=== PATIENT | female | born 1995 | race Two or more races ===

== ENCOUNTER 2018-04-15 21:28 | Emergency (ER) | payer SELFPAY ==
[~2018-04-15] VITALS: Ht 165.1 cm; Wt 70.3 kg
--- NOTE | 2018-04-15 22:03 | PHYS DOC ---
Past Medical History Past Medical History: No Pertinent History Past Surgical History: No Surgical History Alcohol Use: None Drug Use: None Adult General Chief Complaint Chief Complaint: VAGINAL BLEEDING HPI HPI 23-year-old female presents to ER with complaints of 4 day history of intermittent vaginal bleeding. Patient states today the bleeding has increased along with lower abdominal cramping. Patient states she is 2 para 1 with LMP 01/30/18. Patient reports last week she did have flulike illness denies any N/V/D this week or fever/chills, cough, or urinary sxs. Patient denies dizziness or lightheadedness. Patient reports she was seen by her COMMUNICATION INSTRUCTOR last week and had ultrasound on and was told everything looked normal limits. Patient denies any recent falls or injury. Patient denies any recent sexual intercourse. Translation phone used as pt speaks primary Bulgarian with minimal Slovenian. Review of Systems Review of Systems Constitutional: Denies fever or chills [] Respiratory: Denies cough or shortness of breath [] Cardiovascular: No additional information not addressed in HPI [] GI: Denies vomiting, bloody stools or diarrhea. Reports intermittent nausea and mid low abd pain/cramping : Denies dysuria or hematuria. Reports vaginal bleeding- states she has used 3 pads today- denies saturating pads Musculoskeletal: Denies back pain or joint pain [] Integument: Denies rash, swelling or skin lesions [] Neurologic: Denies headache, focal weakness or sensory changes [] Endocrine: Denies polyuria or polydipsia [] All other systems were reviewed and found to be within normal limits, except as documented in this note. Allergies Allergies Allergies Coded Allergies Type Severity Reaction Last Updated Verified No Known Drug Allergies 04/15/18 No Physical Exam Physical Exam Constitutional: Well developed, well nourished, no acute distress, non-toxic appearance. [] HENT: Normocephalic, atraumatic, oropharynx moist, nose normal. [] Eyes: Pupils equal, conjunctiva normal, no discharge. [] Neck: Normal range of motion, no tenderness, supple, no stridor. [] Cardiovascular: Heart rate regular rhythm, no murmur [] Lungs & Thorax: Bilateral breath sounds clear to auscultation. Resp. equal/ nonlabored Abdomen: Bowel sounds normal, soft- no distention or rigidity, tender suprapubic area, no masses, no pulsatile masses. [] Skin: Warm, dry, no erythema, no rash. [] Back: No tenderness, no CVA tenderness. [] Extremities: No tenderness, no cyanosis, no clubbing, ROM intact, no edema. [] Neurologic: Alert and oriented X 3, normal motor function, normal sensory function, no focal deficits noted. [] Psychologic: Affect normal, judgement normal, mood normal. [] Current Patient Data Vital Signs Vital Signs Date Time Temp Pulse Resp B/P (MAP) Pulse Ox O2 Delivery O2 Flow Rate FiO2 04/16/18 00:56 78 16 107/56 (73) 99 Room Air 04/15/18 21:40 98.9 98.9 Lab Values Laboratory Tests Test 04/15/18 21:35 04/15/18 22:02 04/15/18 22:20 Urine Collection Type Unknown Urine Color Yellow Urine Clarity Turbid Urine pH 8.0 Urine Specific [place] 1.020 Urine Protein Negative mg/dL (NEG-TRACE) Urine Glucose (UA) Negative mg/dL (NEG) Urine Ketones (Stick) Negative mg/dL (NEG) Urine Blood Large (NEG) Urine Nitrite Negative (NEG) Urine Bilirubin Negative (NEG) Urine Urobilinogen Dipstick 0.2 mg/dL (0.2 mg/dL) Urine Leukocyte Esterase Small (NEG) Urine RBC Tntc /HPF (0-2) Urine WBC 1-4 /HPF (0-4) Urine Squamous Epithelial Cells Mod /LPF Urine Amorphous Sediment Present /HPF Urine Bacteria 0 /HPF (0-FEW) Urine Mucus Slight /LPF POC Urine HCG, Qualitative Hcg positive (Negative) White Blood Count 11.9 x10^3/uL (4.0-11.0) H Red Blood Count 4.21 x10^6/uL (3.50-5.40) Hemoglobin 13.7 g/dL (12.0-15.5) Hematocrit 38.1 % (36.0-47.0) Mean Corpuscular Volume 91 fL (79-100) Mean Corpuscular Hemoglobin 33 pg (25-35) Mean Corpuscular Hemoglobin Concent 36 g/dL (31-37) Red Cell Distribution Width 12.4 % (11.5-14.5) Platelet Count 240 x10^3/uL (140-400) Neutrophils (%) (Auto) 60 % (31-73) Lymphocytes (%) (Auto) 32 % (24-48) Monocytes (%) (Auto) 7 % (0-9) Eosinophils (%) (Auto) 1 % (0-3) Basophils (%) (Auto) 1 % (0-3) Neutrophils # (Auto) 7.1 x10^3uL (1.8-7.7) Lymphocytes # (Auto) 3.8 x10^3/uL (1.0-4.8) Monocytes # (Auto) 0.8 x10^3/uL (0.0-1.1) Eosinophils # (Auto) 0.1 x10^3/uL (0.0-0.7) Basophils # (Auto) 0.1 x10^3/uL (0.0-0.2) Maternal Serum HCG Beta Subunit 41019 mIU/mL (0-5) H Sodium Level 141 mmol/L (136-145) Potassium Level 3.4 mmol/L (3.5-5.1) L Chloride Level 105 mmol/L (98-107) Carbon Dioxide Level 27 mmol/L (21-32) Anion Gap 9 (6-14) Blood Urea Nitrogen 9 mg/dL (7-20) Creatinine 0.6 mg/dL (0.6-1.0) Estimated GFR (Cockcroft-Gault) 122.8 BUN/Creatinine Ratio 15 (6-20) Glucose Level 96 mg/dL (70-99) Calcium Level 9.2 mg/dL (8.5-10.1) Total Bilirubin 0.2 mg/dL (0.2-1.0) Aspartate Amino Transferase (AST) 17 U/L (15-37) Alanine Aminotransferase (ALT) 23 U/L (14-59) Alkaline Phosphatase 96 U/L (46-116) Total Protein 7.1 g/dL (6.4-8.2) Albumin 3.2 g/dL (3.4-5.0) L Albumin/Globulin Ratio 0.8 (1.0-1.7) L Laboratory Tests 04/15/18 22:20 Laboratory Tests 04/15/18 22:20 Microbiology 04/15/18 Wet Prep - Final, Complete Laboratory Tests Test 04/15/18 21:35 04/15/18 22:02 1/19/19 22:20 Urine Collection Type Unknown Urine Color Yellow Urine Clarity Turbid Urine pH 8.0 Urine Specific [place] 1.020 Urine Protein Negative mg/dL (NEG-TRACE) Urine Glucose (UA) Negative mg/dL (NEG) Urine Ketones (Stick) Negative mg/dL (NEG) Urine Blood Large (NEG) Urine Nitrite Negative (NEG) Urine Bilirubin Negative (NEG) Urine Urobilinogen Dipstick 0.2 mg/dL (0.2 mg/dL) Urine Leukocyte Esterase Small (NEG) Urine RBC Tntc /HPF (0-2) Urine WBC 1-4 /HPF (0-4) Urine Squamous Epithelial Cells Mod /LPF Urine Amorphous Sediment Present /HPF Urine Bacteria 0 /HPF (0-FEW) Urine Mucus Slight /LPF POC Urine HCG, Qualitative Hcg positive (Negative) White Blood Count 11.9 x10^3/uL (4.0-11.0) H Red Blood Count 4.21 x10^6/uL (3.50-5.40) Hemoglobin 13.7 g/dL (12.0-15.5) Hematocrit 38.1 % (36.0-47.0) Mean Corpuscular Volume 91 fL (79-100) Mean Corpuscular Hemoglobin 33 pg (25-35) Mean Corpuscular Hemoglobin Concent 36 g/dL (31-37) Red Cell Distribution Width 12.4 % (11.5-14.5) Platelet Count 240 x10^3/uL (140-400) Neutrophils (%) (Auto) 60 % (31-73) Lymphocytes (%) (Auto) 32 % (24-48) Monocytes (%) (Auto) 7 % (0-9) Eosinophils (%) (Auto) 1 % (0-3) Basophils (%) (Auto) 1 % (0-3) Neutrophils # (Auto) 7.1 x10^3uL (1.8-7.7) Lymphocytes # (Auto) 3.8 x10^3/uL (1.0-4.8) Monocytes # (Auto) 0.8 x10^3/uL (0.0-1.1) Eosinophils # (Auto) 0.1 x10^3/uL (0.0-0.7) Basophils # (Auto) 0.1 x10^3/uL (0.0-0.2) Maternal Serum HCG Beta Subunit 11256 mIU/mL (0-5) H Sodium Level 141 mmol/L (136-145) Potassium Level 3.4 mmol/L (3.5-5.1) L Chloride Level 105 mmol/L (98-107) Carbon Dioxide Level 27 mmol/L (21-32) Anion Gap 9 (6-14) Blood Urea Nitrogen 9 mg/dL (7-20) Creatinine 0.6 mg/dL (0.6-1.0) Estimated GFR (Cockcroft-Gault) 122.8 BUN/Creatinine Ratio 15 (6-20) Glucose Level 96 mg/dL (70-99) Calcium Level 9.2 mg/dL (8.5-10.1) Total Bilirubin 0.2 mg/dL (0.2-1.0) Aspartate Amino Transferase (AST) 17 U/L (15-37) Alanine Aminotransferase (ALT) 23 U/L (14-59) Alkaline Phosphatase 96 U/L (46-116) Total Protein 7.1 g/dL (6.4-8.2) Albumin 3.2 g/dL (3.4-5.0) L Albumin/Globulin Ratio 0.8 (1.0-1.7) L Laboratory Tests 04/15/18 22:20 Laboratory Tests 04/15/18 22:20 Microbiology 04/15/18 Wet Prep - Final, Complete EKG EKG [] Radiology/Procedures Radiology/Procedures Pelvic Exam: SUJATA Conte present 2149 Abdomen: Tender suprapubic External Genitalia: Normal Skin-no rash or lesions Speculum: Normal vaginal mucosa-no lesions or erythema, dark red blood in vaginal vault-no visible clots or tissue. Cervical os closed PROCEDURE: OB <14 WKS W/TV Examination: Obstetric ultrasound less than 14 weeks HISTORY: History of , with interval bleeding COMPARISON: None available FINDINGS: The uterus measures 9.4 x 1.4 x 6.6 cm. No significant free fluid identified in the cul-de-sac. The right ovary measures 5.1 x 4.0 x 2.4 cm. The left ovary measures 2.8 and 1.2 x 1.1 cm. Large cystic structure measuring 4.6 cm identified in the right ovary. Blood flow identified in the right and left ovaries. Intrauterine gestational sac is identified. Yolk sac is identified. pole is not identified. The gestational sac measures 2 cm corresponding to 6 weeks and 6 days. LMP is 01/30/2018. Clinical age 10 weeks and 5 days with expected date of delivery by LMP 11/06/2018. Ultrasound age is 6 weeks and 6 days with expected date of delivery by ultrasound 12/03/2018. IMPRESSION: 1. Intrauterine gestational sac identified without pole. The gestational age corresponds to 6 weeks and 6 days. Differential includes very early or failed first trimester . Close interval follow-up ultrasound examination and quantitative serial beta-hCG levels follow-up is recommended. Electronically signed by: Efren Retana MD (04/15/2018 11:35 PM) [facility] DICTATED and SIGNED BY: EFREN RETANA MD DATE: 04/15/18 6501 Course & Med Decision Making Course & Med Decision Making Pertinent Labs and Imaging studies reviewed. (See chart for details) 0015: Pt was evaluated in the ER for complaints of lower abdominal cramping and vaginal bleeding. Patient had labs and ultrasound obtained. OB US report of "Intrauterine gestational sac identified without pole. The gestational age corresponds to 6 weeks and 6 days" this and lab results were discussed with pt and her husb.as well as discussion on threatened miscarriage. H&H was stable at 13.7/38.1. Pt had O+ blood type so not [place] candidate. UA with lg blood sm. leuks- neg for protein/nitrates and micro with 1-4 WBCs with squamous and bacteria on report. Patient denies increased abdominal pain or soaking through a pad while in the ER. Patient remains nontoxic in appearance and in no visible distress at time of reevaluation. Patient was advised she would need hCG quantitative rechecked in 48 hours- [place] [address]. Patient does not have COMMUNICATION INSTRUCTOR established as of yet. Patient states when she was evaluated last week in [place] that was a clinic checkup and that is not who she will have care through. Advised patient that COMMUNICATION INSTRUCTOR referral would be provided that she couldn't call on Tuesday to schedule an appointment. Advised patient if she was unable to get into a clinic she should return to ER to have level rechecked. Education provided on signs and symptoms to return to ER for and discharge instructions were discussed. Dragon Disclaimer Dragon Disclaimer This electronic medical record was generated, in whole or in part, using a voice recognition dictation system. Departure Departure Impression: Primary Impression: Threatened miscarriage in early Additional Impressions: Vaginal bleeding in Abdominal pain during in first trimester Disposition: HOME, SELF-CARE Condition: STABLE Referrals: NO PCP (PCP) MELI BRUMFIELD Jr, MD Patient Instructions: Abdominal Pain During , Threatened Miscarriage, Vaginal Bleeding During , First Trimester Additional Instructions: Drink plenty of water. Eat well-balanced meals. Avoid insertion of anything into the vagina until follow-up appointment with your COMMUNICATION INSTRUCTOR. Avoid tampons and sexual intercourse while having vaginal bleeding. You need to have your level (HCG quantitative) rechecked in 48 hours- call on Tuesday to schedule an appointment with COMMUNICATION INSTRUCTOR and if unable to do so return to the emergency department or local clinic to have blood drawn. Tylenol as needed for pain control as directed on container. Attending Signature Attending Signature I have reviewed the PA/ELECTROTYPE FINISHER's note and plan of care. I was available for consultation as needed during the patient's visit in the emergency department. I agree with the clinical impression, plan, and disposition. Problem Qualifiers KYLE ESQUIVEL APRN Apr 15, 2018 22:03 BRYANNA LAZARO DO Apr 17, 2018 05:52
[2018-04-15 22:07] LABS: BILIRUBIN,URINE NEGATIVE (NEG); CLARITY,URINE TURBID; COLOR,URINE YELLOW; NITRITE,URINE NEGATIVE (NEG); PROTEIN,URINE NEGATIVE (NEG-TRACE); UROBILINOGEN,URINE 0.2 mg/dL (0.2 mg/dL)
[2018-04-15 22:14] LABS: AMORPHOUS SEDIMENT,UR PRESENT /HPF; BACTERIA,URINE 0 /HPF (0-FEW); RBC,URINE TNTC /HPF (0-2); SQUAMOUS EPITHELIAL CELL,UR MOD /LPF
[2018-04-15 22:33] LABS: BASO # 0.1 x10^3/uL (0.0-0.2); BASO % 1 % (0-3); EOS # 0.1 x10^3/uL (0.0-0.7); EOS % 1 % (0-3); HEMATOCRIT 38.1 % (36.0-47.0); HEMOGLOBIN 13.7 g/dL (12.0-15.5); LYMPH # 3.8 x10^3/uL (1.0-4.8); LYMPH % 32 % (24-48); MEAN CORPUSCULAR HEMOGLOBIN 33 pg (25-35); MEAN CORPUSCULAR HGB CONC 36 g/dL (31-37); MEAN CORPUSCULAR VOLUME 91 fL (79-100); MONO # 0.8 x10^3/uL (0.0-1.1); MONO % 7 % (0-9); NEUT # 7.1 x10^3uL (1.8-7.7); NEUT % 60 % (31-73); PLATELET COUNT 240 x10^3/uL (140-400); RED BLOOD COUNT 4.21 x10^6/uL (3.50-5.40); RED CELL DISTRIBUTION WIDTH 12.4 % (11.5-14.5); WHITE BLOOD COUNT 11.9 x10^3/uL (4.0-11.0)
[2018-04-15 22:48] LABS: CALCIUM 9.2 mg/dL (8.5-10.1); CREATININE 0.6 mg/dL (0.6-1.0); GFR 122.8; POTASSIUM 3.4 mmol/L (3.5-5.1)
[2018-04-15 22:53] LABS: ALBUMIN 3.2 g/dL (3.4-5.0); ALBUMIN/GLOBULIN RATIO 0.8 (1.0-1.7); TOTAL BILIRUBIN 0.2 mg/dL (0.2-1.0); TOTAL PROTEIN 7.1 g/dL (6.4-8.2)
--- NOTE | 2018-04-15 23:40 | RAD ---
Examination: Obstetric ultrasound less than 14 weeks HISTORY: History of , with interval bleeding COMPARISON: None available FINDINGS: The uterus measures 9.4 x 1.4 x 6.6 cm. No significant free fluid identified in the cul-de-sac. The right ovary measures 5.1 x 4.0 x 2.4 cm. The left ovary measures 2.8 and 1.2 x 1.1 cm. Large cystic structure measuring 4.6 cm identified in the right ovary. Blood flow identified in the right and left ovaries. Intrauterine gestational sac is identified. Yolk sac is identified. pole is not identified. The gestational sac measures 2 cm corresponding to 6 weeks and 6 days. LMP is 01/30/2018. Clinical age 10 weeks and 5 days with expected date of delivery by LMP 11/06/2018. Ultrasound age is 6 weeks and 6 days with expected date of delivery by ultrasound 12/03/2018. IMPRESSION: 1. Intrauterine gestational sac identified without pole. The gestational age corresponds to 6 weeks and 6 days. Differential includes very early or failed first trimester . Close interval follow-up ultrasound examination and quantitative serial beta-hCG levels follow-up is recommended. Electronically signed by: Efren Retana MD (04/15/2018 11:35 PM) [facility]
[2018-04-16 00:56] VITALS: BP 107/56
[2018-04-17 14:23] LABS: GC PROBE Negative (Negative)
== END 2018-04-16 00:58 | disposition home or self-care (01) ==
LOC: ER 21:28
DX: O20.0 Threatened abortion (principal); Z3A.10 10 weeks gestation of pregnancy
CPT/HCPCS: 36415; 76801; 76817; 80053; 81001; 81025; 84702; 85025; 86850; 86900; 86901; 87086; 87491; 87591; 99284; Q0111

== ENCOUNTER 2018-04-17 21:45 | Emergency (ER) | payer SELFPAY ==
[~2018-04-17] VITALS: Ht 162.6 cm; Wt 70.3 kg
[2018-04-17 22:44] LABS: BASO # 0.1 x10^3/uL (0.0-0.2); BASO % 1 % (0-3); EOS # 0.2 x10^3/uL (0.0-0.7); EOS % 2 % (0-3); HEMATOCRIT 41.2 % (36.0-47.0); HEMOGLOBIN 14.3 g/dL (12.0-15.5); LYMPH # 3.8 x10^3/uL (1.0-4.8); LYMPH % 29 % (24-48); MEAN CORPUSCULAR HEMOGLOBIN 32 pg (25-35); MEAN CORPUSCULAR HGB CONC 35 g/dL (31-37); MEAN CORPUSCULAR VOLUME 91 fL (79-100); MONO # 0.7 x10^3/uL (0.0-1.1); MONO % 6 % (0-9); NEUT # 8.1 x10^3uL (1.8-7.7); NEUT % 62 % (31-73); PLATELET COUNT 264 x10^3/uL (140-400); RED BLOOD COUNT 4.54 x10^6/uL (3.50-5.40); RED CELL DISTRIBUTION WIDTH 12.5 % (11.5-14.5); WHITE BLOOD COUNT 12.9 x10^3/uL (4.0-11.0)
[2018-04-17 22:58] LABS: ALBUMIN 3.5 g/dL (3.4-5.0); ALBUMIN/GLOBULIN RATIO 0.9 (1.0-1.7); CALCIUM 9.3 mg/dL (8.5-10.1); CREATININE 0.5 mg/dL (0.6-1.0); GFR 151.6; TOTAL BILIRUBIN 0.2 mg/dL (0.2-1.0); TOTAL PROTEIN 7.5 g/dL (6.4-8.2)
--- NOTE | 2018-04-17 23:57 | RAD ---
Examination: OB < 14 WKS History: VAG BLEEDING SCANNED 04-15-18 Comparison/Correlation: None Findings: Transvaginal pelvic ultrasound exam was performed. Myometrium is normal. Irregularly-shaped intrauterine gestational sac is present. Mean sac diameter of 1.98 cm corresponds to 6 weeks 6 days gestation. No pole identified. Yolk sac is evident. Uterus measures 9.16 x 7.19 x 6.6 cm. Right adnexa measures 4.16 x 4.20 3.5 cm. Left adnexa measures 3.16 x 2.3 cm x 1.19. No suspicious adnexal lesions. No pelvic free fluid. Impression: Irregularly shaped gestational sac is present. Yolk sac is evident without a pole. No pole identified. Consider follow-up serial beta hCG and possibly follow-up ultrasound and has long-term viability is questionable considering the abnormal morphology of the gestational sac. Electronically signed by: Jose Daniel Chau MD (04/17/2018 11:53 PM) [facility]
[2018-04-18] MEDS ORDERED: HYDROcodone/APAP 5/325MG 1 TAB TABLET PO ONE
[2018-04-18] MEDS ORDERED: HYDR-3164 PO (00:06)
--- NOTE | 2018-04-18 00:09 | PHYS DOC ---
Past Medical History Past Medical History: No Pertinent History Past Surgical History: No Surgical History Alcohol Use: None Drug Use: None Adult General Chief Complaint Chief Complaint: VAGINAL BLEEDING HPI HPI Patient is a 23 year old [f__sex] who presents with [] Review of Systems Review of Systems Constitutional: Denies fever or chills [] Eyes: Denies change in visual acuity, redness, or eye pain [] HENT: Denies nasal congestion or sore throat [] Respiratory: Denies cough or shortness of breath [] Cardiovascular: No additional information not addressed in HPI [] GI: Denies abdominal pain, nausea, vomiting, bloody stools or diarrhea [] : Denies dysuria or hematuria [] Musculoskeletal: Denies back pain or joint pain [] Integument: Denies rash or skin lesions [] Neurologic: Denies headache, focal weakness or sensory changes [] Endocrine: Denies polyuria or polydipsia [] All other systems were reviewed and found to be within normal limits, except as documented in this note. Current Medications Current Medications Current Medications Medications (Trade) Dose Ordered Sig/Donna Start Time Stop Time Status Last Admin Dose Admin Acetaminophen/ Hydrocodone Bitart (Lortab 5/325) 2 tab 1X ONCE 04/18/18 00:00 04/18/18 00:01 DC 04/17/18 23:40 2 TAB Allergies Allergies Allergies Coded Allergies Type Severity Reaction Last Updated Verified No Known Drug Allergies 04/15/18 No Physical Exam Physical Exam Constitutional: Well developed, well nourished, no acute distress, non-toxic appearance. [] HENT: Normocephalic, atraumatic, bilateral external ears normal, oropharynx moist, no oral exudates, nose normal. [] Eyes: PERRLA, EOMI, conjunctiva normal, no discharge. [] Neck: Normal range of motion, no tenderness, supple, no stridor. [] Cardiovascular:Heart rate regular rhythm, no murmur [] Lungs & Thorax: Bilateral breath sounds clear to auscultation [] Abdomen: Bowel sounds normal, soft, no tenderness, no masses, no pulsatile masses. [] Skin: Warm, dry, no erythema, no rash. [] Back: No tenderness, no CVA tenderness. [] Extremities: No tenderness, no cyanosis, no clubbing, ROM intact, no edema. [] Neurologic: Alert and oriented X 3, normal motor function, normal sensory function, no focal deficits noted. [] Psychologic: Affect normal, judgement normal, mood normal. [] Current Patient Data Vital Signs Vital Signs Date Time Temp Pulse Resp B/P (MAP) Pulse Ox O2 Delivery O2 Flow Rate FiO2 04/17/18 23:40 16 99 04/17/18 22:15 98.3 88 110/60 (77) Room Air 98.3 Lab Values Laboratory Tests Test 04/17/18 22:02 04/17/18 22:24 POC Urine HCG, Qualitative Hcg positive (Negative) White Blood Count 12.9 x10^3/uL (4.0-11.0) H Red Blood Count 4.54 x10^6/uL (3.50-5.40) Hemoglobin 14.3 g/dL (12.0-15.5) Hematocrit 41.2 % (36.0-47.0) Mean Corpuscular Volume 91 fL (79-100) Mean Corpuscular Hemoglobin 32 pg (25-35) Mean Corpuscular Hemoglobin Concent 35 g/dL (31-37) Red Cell Distribution Width 12.5 % (11.5-14.5) Platelet Count 264 x10^3/uL (140-400) Neutrophils (%) (Auto) 62 % (31-73) Lymphocytes (%) (Auto) 29 % (24-48) Monocytes (%) (Auto) 6 % (0-9) Eosinophils (%) (Auto) 2 % (0-3) Basophils (%) (Auto) 1 % (0-3) Neutrophils # (Auto) 8.1 x10^3uL (1.8-7.7) H Lymphocytes # (Auto) 3.8 x10^3/uL (1.0-4.8) Monocytes # (Auto) 0.7 x10^3/uL (0.0-1.1) Eosinophils # (Auto) 0.2 x10^3/uL (0.0-0.7) Basophils # (Auto) 0.1 x10^3/uL (0.0-0.2) Maternal Serum HCG Beta Subunit 7741 mIU/mL (0-5) H Sodium Level 137 mmol/L (136-145) Potassium Level 4.0 mmol/L (3.5-5.1) Chloride Level 104 mmol/L (98-107) Carbon Dioxide Level 26 mmol/L (21-32) Anion Gap 7 (6-14) Blood Urea Nitrogen 8 mg/dL (7-20) Creatinine 0.5 mg/dL (0.6-1.0) L Estimated GFR (Cockcroft-Gault) 151.6 BUN/Creatinine Ratio 16 (6-20) Glucose Level 111 mg/dL (70-99) H Calcium Level 9.3 mg/dL (8.5-10.1) Total Bilirubin 0.2 mg/dL (0.2-1.0) Aspartate Amino Transferase (AST) 27 U/L (15-37) Alanine Aminotransferase (ALT) 41 U/L (14-59) Alkaline Phosphatase 109 U/L (46-116) Total Protein 7.5 g/dL (6.4-8.2) Albumin 3.5 g/dL (3.4-5.0) Albumin/Globulin Ratio 0.9 (1.0-1.7) L Laboratory Tests 04/17/18 22:24 Laboratory Tests 04/17/18 22:24 EKG EKG [] Radiology/Procedures Radiology/Procedures []Signed PATIENT: LILIANA ESTES ACCOUNT: [id number] : 1995 LOCATION: ER AGE: 23 SEX: F EXAM STATUS: REG ER ORD. PHYSICIAN: DOMINGO RICHARDS APRN REASON: possible miscarriage PROCEDURE: OB < 14 WKS Examination: OB < 14 WKS History: VAG BLEEDING SCANNED 04-15-18 Comparison/Correlation: None Findings: Transvaginal pelvic ultrasound exam was performed. Myometrium is normal. Irregularly-shaped intrauterine gestational sac is present. Mean sac diameter of 1.98 cm corresponds to 6 weeks 6 days gestation. No pole identified. Yolk sac is evident. Uterus measures 9.16 x 7.19 x 6.6 cm. Right adnexa measures 4.16 x 4.20 3.5 cm. Left adnexa measures 3.16 x 2.3 cm x 1.19. No suspicious adnexal lesions. No pelvic free fluid. Impression: Irregularly shaped gestational sac is present. Yolk sac is evident without a pole. No pole identified. Consider follow-up serial beta hCG and possibly follow-up ultrasound and has long-term viability is questionable considering the abnormal morphology of the gestational sac. Electronically signed by: Jose Daniel Sanchez MD (04/17/2018 11:53 PM) [facility] DICTATED and SIGNED BY: JOSE DANIEL SANCHEZ MD DATE: 04/17/18 7267 Course & Med Decision Making Course & Med Decision Making Pertinent Labs and Imaging studies reviewed. (See chart for details) [] Dragon Disclaimer Dragon Disclaimer This electronic medical record was generated, in whole or in part, using a voice recognition dictation system. Departure Departure Impression: Primary Impression: Threatened miscarriage in early Disposition: HOME, SELF-CARE Condition: STABLE Referrals: NO PCP (PCP) Patient Instructions: Threatened Miscarriage Additional Instructions: Take the pain medication as directed. Do not drive or operate heavy machinery while taking this medication. If you develop dizziness or are soaking more than 2 Kotex per hour, return to the emergency department. Scripts Hydrocodone/Apap 5-325 (NORCO 5-325 TABLET) 1 Each Tablet 1 TAB PO PRN Q6HRS PRN for PAIN, #14 TAB 0 Refills Prov: DOMINGO RICHARDS APRN 04/18/18 DOMINGO RICHARDS APRN Apr 18, 2018 00:09
[2018-04-18 00:31] VITALS: BP 116/54
== END 2018-04-18 00:32 | disposition home or self-care (01) ==
LOC: ER 21:45
DX: O20.0 Threatened abortion (principal); Z3A.01 Less than 8 weeks gestation of pregnancy
CPT/HCPCS: 36415; 76801; 80053; 81025; 84702; 85025; 99284-25

== ENCOUNTER 2019-04-03 17:32 | Observation (INO) | payer OTHER ==
[~2019-04-03 17:32] MED LIST: HYDR-3164 PO
[2019-04-03 18:32] LABS: BILIRUBIN,URINE NEGATIVE (NEG); CLARITY,URINE CLEAR; COLOR,URINE YELLOW; NITRITE,URINE NEGATIVE (NEG); PROTEIN,URINE NEGATIVE (NEG-TRACE)
[2019-04-03 18:41] LABS: BACTERIA,URINE FEW /HPF (0-FEW); RBC,URINE 0 /HPF (0-2); WBC,URINE RARE /HPF (0-4)
[2019-04-03 18:42] LABS: SQUAMOUS EPITHELIAL CELL,UR FEW /LPF
--- NOTE | 2019-04-03 18:46 | PDOC1 ---
OB - History Hx of Present Care: Good Care Ultrasounds: Normal mid trimester US Obstetrical Complications: None Medical Complications: Other (URI) Past Family/Social History * Past Medical, Surgical, Family and Obstetric Histories reviewed from chart. Rubella: Immune RPR/VDRL: Negative GBS Status: Unknown HBsAG: Negative OB - Chief Complaint & HPI Date of Admission: Date of Admission: Apr 03, 2019 at 17:32 Chief Complaint/History : 3 Para: 2 EGA: 32 Reason for admission: observation (URI) Admission Nurse Assessment Rev: Yes OB - Admission Exam Physical Exam HEENT: Normal Heart: Regular Rate Lungs: Rales Abdomen: Gravid, Non tender, Soft Extremities: Edema Reflexes: Normal Cervical Dilatation: None Effacement: 0% Station: Ballotable Membranes: Intact Heart Rate: Normal Accelerations: Accelerations Present Decelerations: No decelerations Contractions on Admission: None Text A: 32 wks IUP URI r/o influenza P: Observation for IV hydration and influenza swab. Check on labs. MELI BRUMFIELD Jr, MD Apr 03, 2019 18:46
[2019-04-03] MEDS: IV RINGERS,LACTATED 1000ML 1,000 ML IV PRN ×2 (18:53→19:53)
[2019-04-03] MEDS: ACETAMINOPHEN 500 MG TABLET PO PRN (18:53)
[2019-04-03 19:04] LABS: BASO # 0.1 x10^3/uL (0.0-0.2); BASO % 1 % (0-3); EOS % 0 % (0-3); HEMOGLOBIN 12.8 g/dL (12.0-15.5); LYMPH # 1.1 x10^3/uL (1.0-4.8); LYMPH % 12 % (24-48); MEAN CORPUSCULAR HEMOGLOBIN 32 pg (25-35); MEAN CORPUSCULAR HGB CONC 35 g/dL (31-37); MEAN CORPUSCULAR VOLUME 93 fL (79-100); MONO # 0.7 x10^3/uL (0.0-1.1); MONO % 8 % (0-9); NEUT # 7.5 x10^3/uL (1.8-7.7); NEUT % 80 % (31-73); PLATELET COUNT 212 x10^3/uL (140-400); RED BLOOD COUNT 3.98 x10^6/uL (3.50-5.40); RED CELL DISTRIBUTION WIDTH 13.7 % (11.5-14.5); WHITE BLOOD COUNT 9.4 x10^3/uL (4.0-11.0)
[2019-04-03 19:22] LABS: ALBUMIN 2.8 g/dL (3.4-5.0); ALBUMIN/GLOBULIN RATIO 0.6 (1.0-1.7); CALCIUM 8.1 mg/dL (8.5-10.1); CREATININE 0.5 mg/dL (0.6-1.0); GFR 150.3; POTASSIUM 3.6 mmol/L (3.5-5.1); TOTAL BILIRUBIN 0.4 mg/dL (0.2-1.0); TOTAL PROTEIN 7.2 g/dL (6.4-8.2)
[2019-04-03] MEDS ORDERED: diphenhydrAMINE HCL 25 MG CAPSULE PO PRN (19:45)
[2019-04-03] MEDS: guaiFENesin DM 200MG/20MG 10 ML SYRUP PO PRN (20:25)
[2019-04-03 21:47] LABS: INFLUENZA A PATIENT NEGATIVE (NEGATIVE)
[2019-04-03 21:48] LABS: INFLUENZA B PATIENT POSITIVE (NEGATIVE)
[2019-04-03] MEDS ORDERED: OSELTAMIVIR 75 MG CAPSULE PO SCH (22:00)
[2019-04-04] MEDS ORDERED: ONDANSETRON PF 4 MG/2 ML VIAL. IVP PRN (00:15)
[2019-04-04] MEDS: ACETAMINOPHEN 500 MG TABLET PO PRN ×2 (00:30→04:03)
[2019-04-04] MEDS: IV RINGERS,LACTATED 1000ML 1,000 ML IV PRN (04:03)
[2019-04-04] MEDS: guaiFENesin DM 200MG/20MG 10 ML SYRUP PO PRN (04:18)
--- NOTE | 2019-04-04 07:54 | PDOC ---
OB Progress Note Date of Service 04/04/19 Time of Evaluation 0750 Notes Pt. feeling better. No fever overnight. Pt. has and child at home that will need treatment as well. Lab Laboratory Tests Test 04/03/19 17:50 04/03/19 18:40 04/03/19 20:45 Urine Collection Type Unknown Urine Color Yellow Urine Clarity Clear Urine pH 8.0 Urine Specific [place] <=1.005 Urine Protein Negative mg/dL (NEG-TRACE) Urine Glucose (UA) Negative mg/dL (NEG) Urine Ketones (Stick) Negative mg/dL (NEG) Urine Blood Negative (NEG) Urine Nitrite Negative (NEG) Urine Bilirubin Negative (NEG) Urine Urobilinogen Dipstick 1.0 mg/dL (0.2 mg/dL) Urine Leukocyte Esterase Trace (NEG) Urine RBC 0 /HPF (0-2) Urine WBC Rare /HPF (0-4) Urine Squamous Epithelial Cells Few /LPF Urine Bacteria Few /HPF (0-FEW) White Blood Count 9.4 x10^3/uL (4.0-11.0) Red Blood Count 3.98 x10^6/uL (3.50-5.40) Hemoglobin 12.8 g/dL (12.0-15.5) Hematocrit 37.0 % (36.0-47.0) Mean Corpuscular Volume 93 fL (79-100) Mean Corpuscular Hemoglobin 32 pg (25-35) Mean Corpuscular Hemoglobin Concent 35 g/dL (31-37) Red Cell Distribution Width 13.7 % (11.5-14.5) Platelet Count 212 x10^3/uL (140-400) Neutrophils (%) (Auto) 80 % (31-73) Lymphocytes (%) (Auto) 12 % (24-48) Monocytes (%) (Auto) 8 % (0-9) Eosinophils (%) (Auto) 0 % (0-3) Basophils (%) (Auto) 1 % (0-3) Neutrophils # (Auto) 7.5 x10^3/uL (1.8-7.7) Lymphocytes # (Auto) 1.1 x10^3/uL (1.0-4.8) Monocytes # (Auto) 0.7 x10^3/uL (0.0-1.1) Eosinophils # (Auto) 0.0 x10^3/uL (0.0-0.7) Basophils # (Auto) 0.1 x10^3/uL (0.0-0.2) Sodium Level 138 mmol/L (136-145) Potassium Level 3.6 mmol/L (3.5-5.1) Chloride Level 103 mmol/L (98-107) Carbon Dioxide Level 25 mmol/L (21-32) Anion Gap 10 (6-14) Blood Urea Nitrogen 5 mg/dL (7-20) Creatinine 0.5 mg/dL (0.6-1.0) Estimated GFR (Cockcroft-Gault) 150.3 BUN/Creatinine Ratio 10 (6-20) Glucose Level 99 mg/dL (70-99) Calcium Level 8.1 mg/dL (8.5-10.1) Total Bilirubin 0.4 mg/dL (0.2-1.0) Aspartate Amino Transf (AST/SGOT) 22 U/L (15-37) Alanine Aminotransferase (ALT/SGPT) 14 U/L (14-59) Alkaline Phosphatase 149 U/L (46-116) Total Protein 7.2 g/dL (6.4-8.2) Albumin 2.8 g/dL (3.4-5.0) Albumin/Globulin Ratio 0.6 (1.0-1.7) Influenza Type A Antigen Negative (NEGATIVE) Influenza Type B Antigen Positive (NEGATIVE) Laboratory Tests Test 04/03/19 17:50 04/03/19 18:40 04/03/19 20:45 Urine Collection Type Unknown Urine Color Yellow Urine Clarity Clear Urine pH 8.0 Urine Specific [place] <=1.005 Urine Protein Negative mg/dL (NEG-TRACE) Urine Glucose (UA) Negative mg/dL (NEG) Urine Ketones (Stick) Negative mg/dL (NEG) Urine Blood Negative (NEG) Urine Nitrite Negative (NEG) Urine Bilirubin Negative (NEG) Urine Urobilinogen Dipstick 1.0 mg/dL (0.2 mg/dL) Urine Leukocyte Esterase Trace (NEG) Urine RBC 0 /HPF (0-2) Urine WBC Rare /HPF (0-4) Urine Squamous Epithelial Cells Few /LPF Urine Bacteria Few /HPF (0-FEW) White Blood Count 9.4 x10^3/uL (4.0-11.0) Red Blood Count 3.98 x10^6/uL (3.50-5.40) Hemoglobin 12.8 g/dL (12.0-15.5) Hematocrit 37.0 % (36.0-47.0) Mean Corpuscular Volume 93 fL (79-100) Mean Corpuscular Hemoglobin 32 pg (25-35) Mean Corpuscular Hemoglobin Concent 35 g/dL (31-37) Red Cell Distribution Width 13.7 % (11.5-14.5) Platelet Count 212 x10^3/uL (140-400) Neutrophils (%) (Auto) 80 % (31-73) Lymphocytes (%) (Auto) 12 % (24-48) Monocytes (%) (Auto) 8 % (0-9) Eosinophils (%) (Auto) 0 % (0-3) Basophils (%) (Auto) 1 % (0-3) Neutrophils # (Auto) 7.5 x10^3/uL (1.8-7.7) Lymphocytes # (Auto) 1.1 x10^3/uL (1.0-4.8) Monocytes # (Auto) 0.7 x10^3/uL (0.0-1.1) Eosinophils # (Auto) 0.0 x10^3/uL (0.0-0.7) Basophils # (Auto) 0.1 x10^3/uL (0.0-0.2) Sodium Level 138 mmol/L (136-145) Potassium Level 3.6 mmol/L (3.5-5.1) Chloride Level 103 mmol/L (98-107) Carbon Dioxide Level 25 mmol/L (21-32) Anion Gap 10 (6-14) Blood Urea Nitrogen 5 mg/dL (7-20) Creatinine 0.5 mg/dL (0.6-1.0) Estimated GFR (Cockcroft-Gault) 150.3 BUN/Creatinine Ratio 10 (6-20) Glucose Level 99 mg/dL (70-99) Calcium Level 8.1 mg/dL (8.5-10.1) Total Bilirubin 0.4 mg/dL (0.2-1.0) Aspartate Amino Transf (AST/SGOT) 22 U/L (15-37) Alanine Aminotransferase (ALT/SGPT) 14 U/L (14-59) Alkaline Phosphatase 149 U/L (46-116) Total Protein 7.2 g/dL (6.4-8.2) Albumin 2.8 g/dL (3.4-5.0) Albumin/Globulin Ratio 0.6 (1.0-1.7) Influenza Type A Antigen Negative (NEGATIVE) Influenza Type B Antigen Positive (NEGATIVE) Medications Current Medications Ringer's Solution 1,000 ml @ 125 mls/hr Q8H PRN IV PER PROTOCOL Last administered on 04/04/19at 04:03; Start 04/03/19 at 18:30 Acetaminophen (Tylenol) 1,000 mg PRN Q6HRS PRN PO PAIN Last administered on 04/04/19at 04:03; Start 04/03/19 at 18:15 Guaifenesin (Robitussin Dm) 10 ml PRN Q6HRS PRN PO COUGH Last administered on 04/04/19at 04:18; Start 04/03/19 at 19:45 Diphenhydramine HCl (Benadryl) 50 mg PRN QHS PRN PO INSOMNIA Last administered on 04/03/19at 23:17; Start 04/03/19 at 19:45 Oseltamivir Phosphate (Tamiflu) 75 mg BID PO Last administered on 04/03/19at 22:12; Start 04/03/19 at 22:00; Stop 04/08/19 at 21:59 Ondansetron HCl (Zofran) 8 mg PRN Q6HRS PRN IVP NAUSEA/VOMITING 1ST CHOICE Last administered on 04/04/19at 00:30; Start 04/04/19 at 00:15 Active Scripts Active [place] 5-325 Tablet (Acetaminophen/Hydrocodone Bitart) 1 Each Tablet 1 Tab PO PRN Q6HRS PRN Exam Abd: soft, non tender NST category 1 Assessment 32 wks IUP Influenza B Plan of Care: See new orders (D/ c home. F/u in 1 week.) MELI BRUMFIELD Jr, MD Apr 04, 2019 07:54
[2019-04-04] MEDS ORDERED: OSEL75CA PO (08:00)
--- NOTE | 2019-04-04 08:01 | DISCH ---
DISCHARGE INSTRUCTIONS Condition on Discharge Condition on Discharge: Stable Activity After Discharge Activity Instructions for Disc: Activity as tolerated Lifting Instructions after Dis: No heavy lifting Driving Instructions after Dis: Do not drive today Diet after Discharge Diet after Discharge: Regular Contacting the DRNoel after DC Call your doctor for: Concerns you may have Follow-Up Follow up with: Silas in 1 week. MELI BRUMFIELD Jr, MD Apr 04, 2019 08:01
== END 2019-04-04 08:20 | disposition home or self-care (01) ==
LOC: 3 SO LND 17:32
PROVIDERS: ADMIT Obstetrics & Gynecology; ATTEND Obstetrics & Gynecology
DX: O99.513 Diseases of the respiratory system complicating pregnancy, third trimester (principal); J06.9 Acute upper respiratory infection, unspecified; Z3A.32 32 weeks gestation of pregnancy
CPT/HCPCS: 36415; 80053; 81001; 85025; 87086; 87804; 96374; G0378; G0379; J2405; J7120; Q0163